=== PATIENT | female | born 1955 | race Caucasian/White ===

== ENCOUNTER 2017-01-27 12:10 | Emergency (ER) | payer BC ==
[~2017-01-27] VITALS: Ht 160 cm; Wt 54.0 kg
--- NOTE | 2017-01-27 12:15 | NUR ---
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 PATIENT A/OX 4. BREATHING EVEN AND UNLABORED. NO SOB. VITALS STABLE. SAFETY AND COMFORT MEASURES IN PLACE. AWAITING MD ORDERS.
[2017-01-27] MEDS ORDERED: ONDANSETRON HCL/PF 4 MG/2 ML VIAL ONE (12:21)
[2017-01-27] MEDS ORDERED: HYDROMORPHONE INJ 2 MG/ML DISP.SYRIN ONE (12:22)
[2017-01-27] MEDS ORDERED: ONDANSETRON HCL/PF 4 MG/2 ML VIAL IVP ONE (12:30)
[2017-01-27] MEDS ORDERED: HYDROMORPHONE INJ 2 MG/ML DISP.SYRIN IV ONE (12:30)
--- NOTE | 2017-01-27 12:30 | NUR ---
NEW IV STARTED ON LAC, 20 G. BLOOD DRAWN AND SENT TO LAB.
[2017-01-27 12:35] LABS: BASOPHILS % (AUTO) 0.4 % (0.0-2.0); EOSINOPHILS # (AUTO) 0.1 /CMM (0.0-0.7); EOSINOPHILS % (AUTO) 0.7 % (0.0-6.0); HEMATOCRIT 33 % (33-45); HEMOGLOBIN 11.2 g/dL (11.5-14.8); LYMPHOCYTES # (AUTO) 1.1 /CMM (0.8-4.8); LYMPHOCYTES % (AUTO) 13.8 % (20.0-44.0); MEAN CORPUSCULAR HEMOGLOBIN 30 PG (26.0-33.0); MEAN CORPUSCULAR HGB CONC 34 g/dl (31.0-36.0); MEAN CORPUSCULAR VOLUME 90 fL (82-100); MONOCYTES # (AUTO) 0.8 /CMM (0.1-1.30); MONOCYTES % (AUTO) 9.7 % (2.0-12.0); NEUTROPHILS # (AUTO) 6.1 /CMM (1.8-8.9); NEUTROPHILS % (AUTO) 75.4 % (43.0-81.0); PLATELET COUNT (AUTO) 220 /CMM (150-450); RDW COEFFICIENT OF VARIATION 12.4 (11.5-15.0); RED BLOOD CELL COUNT(AUTO) 3.68 MIL/uL (4.0-5.2); WHITE BLOOD COUNT (AUTO) 8.1 K/uL (4.3-11.0)
--- NOTE | 2017-01-27 12:37 | NUR ---
PATIENT MEDICATED PER MD ORDERS.
--- NOTE | 2017-01-27 12:40 | NUR ---
PATIENT TAKEN TO CT VIA STRETCHER.
--- NOTE | 2017-01-27 12:46 | NUR ---
PATIENT RETURNED FROM CT IN STABLE CONDITION.
[2017-01-27 12:48] LABS: CARBON DIOXIDE 27 mmol/L (21-32); CHLORIDE 105 mmol/L (98-107); CREATININE 0.6 mg/dL (0.6-1.3); GLUCOSE 125 mg/dL (74-106); INR 0.88 (0.87-1.13); POTASSIUM 3.2 mmol/L (3.5-5.1); PROTHROMBIN TIME 9.2 SECS (9.5-12.7); SODIUM SERUM 141 mmol/L (136-145); UREA NITROGEN, BLOOD 13 mg/dL (7-18)
[2017-01-27 12:55] LABS: TROPONIN I < 0.017 ng/mL (0.00-0.056)
[2017-01-27 12:57] LABS: ALANINE AMINOTRANSFERASE 35 U/L (12-78); ALBUMIN 3.1 g/dL (3.4-5.0); ALKALINE PHOSPHATASE 133 U/L (46-116); ASPARTATE AMINOTRANSFERASE 40 U/L (15-37); BILIRUBIN,DIRECT 0.1 mg/dL (0.0-0.2); BILIRUBIN,TOTAL 0.3 mg/dL (0.2-1.0); TOTAL PROTEIN, SERUM 7.5 g/dL (6.4-8.2)
[2017-01-27 14:00] VITALS: BP 152/84
--- NOTE | 2017-01-27 14:03 | NUR ---
Patient discharged to home in stable condition. Written and verbal after care instructions given. Patient verbalizes understanding of instruction.
== END 2017-01-27 14:02 | disposition home or self-care (01) ==
LOC: ER 12:12
DX: M54.5 Low back pain (principal); R79.1 Abnormal coagulation profile; F10.10 Alcohol abuse, uncomplicated; Z98.890 Other specified postprocedural states; Z88.0 Allergy status to penicillin
CPT/HCPCS: 36415; 71010; 72131; 80048; 80076; 84484; 85025; 85730; 93005; 96374; 96375; 99285; A4606; J1170; J2405; Z7610

== ENCOUNTER 2017-01-27 14:17 | Emergency (ER) | payer BC ==
--- NOTE | 2017-01-27 14:19 | NUR ---
CALLED IN [facility]- NO ANSWER
--- NOTE | 2017-01-27 14:25 | NUR ---
CALLED IN WR- NO CANDYWER
--- NOTE | 2017-01-27 14:32 | NUR ---
CALLED IN [facility]- NO ANSWER
== END 2017-01-27 14:33 | disposition left against medical advice (07) ==
LOC: ER 14:19
DX: Z53.21 Procedure and treatment not carried out due to patient leaving prior to being seen by health care provider (principal); Z88.0 Allergy status to penicillin; Z98.890 Other specified postprocedural states

== ENCOUNTER 2022-09-16 13:20 | Emergency (ER) | payer BC, MEDICARE ==
[~2022-09-16] VITALS: Ht 160 cm; Wt 47.6 kg
--- NOTE | 2022-09-16 13:40 | NUR ---
PATIENT CAME WITH B/L LOWER LEG PAIN ,ON ROOM AIR,ALERT AND ORIENTED.
--- NOTE | 2022-09-16 13:41 | NUR ---
PLACED ON TRACK REPAIR PERSON AND ATTACHED TO PULSE OXY METER.
--- NOTE | 2022-09-16 13:41 | NUR ---
DR KO AT BED SIDE.
[2022-09-16] MEDS ORDERED: SULF1TAB48 PO (13:46)
[2022-09-16] MEDS ORDERED: IBUPROFEN 400 MG TABLET ONE (13:51)
[2022-09-16] MEDS ORDERED: ACETAMINOPHEN ES 500 MG TABLET ONE (13:51)
[2022-09-16] MEDS ORDERED: IBUPROFEN 400 MG TABLET PO ONE (14:00)
[2022-09-16] MEDS ORDERED: ACETAMINOPHEN ES 500 MG TABLET PO ONE (14:00)
[2022-09-16] MEDS ORDERED: KETOROLAC TROMETHAMINE INJ 30 MG/ML VIAL IM ONE (14:30)
[2022-09-16] MEDS ORDERED: KETOROLAC TROMETHAMINE INJ 30 MG/ML VIAL ONE (14:33)
[2022-09-16 14:42] VITALS: BP 162/55; TEMP 98.5
--- NOTE | 2022-09-16 14:42 | NUR ---
Patient discharged to home in stable condition. Written and verbal after care instructions given. Patient verbalizes understanding of instruction.
== END 2022-09-16 14:42 | disposition home or self-care (01) ==
LOC: ER 13:26
DX: L03.116 Cellulitis of left lower limb (principal); L03.115 Cellulitis of right lower limb; Z88.0 Allergy status to penicillin
CPT/HCPCS: 99283; 96372; J1885